=== PATIENT | female | born 1950 | race Caucasian/White ===

== ENCOUNTER → 2016-11-19 | Outpatient (CLI) | payer OTHER ==
--- NOTE | 2016-11-19 15:38 | US ---
Ultrasound Pelvis Complete (Transabdominal and Endovaginal) Including Duplex/Doppler Imaging History: Postmenopausal bleeding. N95.0 COMPARISON: MAY 2009. Technique: Transabdominal and endovaginal ultrasound images were obtained. Endovaginal images obtain ed for better evaluation of the uterine myometrium and adnexa. Duplex/Doppler imaging of adnexa. Findings: Uterus measures 10 x 4 x 5 cm. Endometrial thickness is 4 mm. In the anterior mid body of uterus there is a subserosal 1.7 x 1.6 x 1.6 cm hypoechoic leiomyoma unchanged since 2008. A few [place] cysts in the cervix. Right ovary measures 1.2 x 1.5 x 0.7 cm. Left ovary not visualized. No adnexal masses. No significa nt free fluid in the pelvis. Color Doppler flow to right ovary without torsion. Impression: 1. Anterior mid body subserosal uterine leiomyoma measuring 1.7 x 1.6 x 1.6 cm. 2. Normal endometrial thickness 4 mm. 3. Normal right ovary. 4. Left ovary not visualized. 5. No ascites.
== END ==
LOC: FIMAGING 13:25
PROVIDERS: ATTEND Obstetrics & Gynecology
DX: N95.0 Postmenopausal bleeding (principal); D25.2 Subserosal leiomyoma of uterus

== ENCOUNTER 2017-04-15 14:16 | Emergency (ER) | payer OTHER ==
[2017-04-15 14:26] VITALS: BP 165/87; PULSE 81; RESP 20; TEMP 97.3; O2SAT 99
--- NOTE | 2017-04-15 15:03 | EDPHY ---
H & P Time Seen by Provider: 04/15/17 14:50 HPI/ROS: CHIEF COMPLAINT: Left hip pain HISTORY OF PRESENT ILLNESS: Patient is a 67-year-old female with a remote history of breast cancer presents to the emergency department with left hip pain. Her pain started 3 weeks ago. It has been intermittent and waxing waning. She was doing fine yesterday. However when she woke this morning she had significant pain in her left hip. This was worse with movement. It hurts with particular movements "side to side." She is able to stand on it without significant worsening of her pain. She has no numbness or tingling. She does report that she had foot tingling "weeks and weeks ago" but this has resolved. She has no current numbness, tingling or weakness. No redness surrounding hip. No fevers or chills. No back pain. No recent falls or trauma. REVIEW OF SYSTEMS: My complete review of systems is negative except as mentioned in the HPI. Past Medical/Surgical History: Includes breast cancer, hypertension, glaucoma Past surgical history: Bilateral mastectomy, bilateral knee scope Social history: The patient does not smoke Smoking Status: Former smoker Physical Exam: 36.3, 165/87, 81, 20, 99% on room air GENERAL: Well-appearing, in no acute distress, alert. HEENT: Eyes normal to inspection, normal pharynx, no signs of dehydration. NECK: No thyromegaly, no lymphadenopathy, supple. RESPIRATORY: Clear to auscultation bilaterally, no rales, rhonchi or wheezing. CVS: Regular rate and rhythm, no rubs, murmurs, or gallops. ABDOMEN: Soft, nontender, nondistended, no organomegaly. No hernia. BACK: Normal to inspection, no CVA tenderness. Pelvis: Stable. No tenderness palpation. SKIN: Normal color, no rash, warm, dry. No pallor. EXTREMITIES: No pedal edema, no calf tenderness, no Homans sign or cords, no joint swelling. The left hip appears normal. No hip erythema or warmth. Patient has no discomfort with passive range of motion of her left hip. NEURO/PSYCH: Alert and oriented, normal mood and affect, normal motor sensory exam. Constitutional: Initial Vital Signs Temperature (C) 36.3 C 04/15/17 14:23 Heart Rate 81 04/15/17 14:23 Respiratory Rate 20 04/15/17 14:23 Blood Pressure 165/87 H 04/15/17 14:23 O2 Sat (%) 99 04/15/17 14:23 O2 Delivery Mode Room Air Allergies/Adverse Reactions: codeine [Codeine] Allergy (Verified 04/15/17 14:21) nitrofurantoin [From Macrobid] Allergy (Verified 04/15/17 14:21) nitrofurantoin macrocrystalline [From Macrobid] Allergy (Verified 04/15/17 14:21 ) Sulfa (Sulfonamide Antibiotics) Allergy (Verified 04/15/17 14:21) Home Medications: Medication Instructions Recorded Ibuprofen 600 mg PO Q6 #15 tablet 04/15/17 Minivelle 04/15/17 Progesterone 04/15/17 Ramipril 04/15/17 Travasol 8.5%-Electrolytes 04/15/17 oxyCODONE/APAP 5/325 [Percocet 1 - 2 tab PO Q4PRN PRN #11 tab 04/15/17 5/325 (*)] Medical Decision Making ED Course/Re-evaluation: In the emergency department discussed possible etiologies with the patient. I reviewed the patient's images from urgent care. Left hip: No acute disease noted. Please refer the dictated report by radiologist. I discussed the results with the patient. I answered all her questions. at this time I do not feel she needs laboratory studies. I do not feel she needs MRI upper lumbar spine or hip. I do not think this represents a surgical emergency. Patient will be given crutches, anti-inflammatory pain medication. She will follow up with Orthopedics. She is given warnings prior to leaving. She will return with worsening symptoms. Of note, the patient states she has an allergy to anti-inflammatory information. The ibuprofen script was torn up. Patient did not want crutches from the emergency department. She has crutches at home. Differential Diagnosis: My differential includes but is not limited to fracture, dislocation, sprain, strain, septic joint, disc herniation, cauda equina syndrome, epidural mass, epidural hematoma Departure - Departure Disposition: Home, Routine, Self-Care Clinical Impression: Left hip pain Condition: Good Instructions: Hip Pain (ED) Additional Instructions: Your x-ray did not show any fracture or dislocation. Use ice for the next 48 hours. Use your anti-inflammatory medicine. If your pain continues, use the pain medicine prescribed. You she weight bare as tolerated. Use your crutches as needed. Make appointment to follow up with Dr. Sanches. Referrals: Castro Sanches MD [Medical Doctor] - 3-4 days, if not improved Prescriptions: Ibuprofen 600 mg PO Q6 #15 tablet oxyCODONE/APAP 5/325 [Percocet 5/325 (*)] 1 - 2 tab PO Q4PRN PRN #11 tab PRN Reason: For Moderate To Severe Pain
== END 2017-04-15 15:32 | disposition home or self-care (01) ==
DX: M25.552 Pain in left hip (principal); I10 Essential (primary) hypertension; Z85.3 Personal history of malignant neoplasm of breast; Z87.891 Personal history of nicotine dependence

== ENCOUNTER → 2017-04-15 | Outpatient (CLI) | payer OTHER | LOC: BMCIMAGING 12:48 | PROVIDERS: ATTEND Family Medicine | DX: M25.552 Pain in left hip (principal); Z85.3 Personal history of malignant neoplasm of breast ==

== ENCOUNTER → 2018-07-23 | Outpatient (CLI) | payer OTHER | LOC: FIMAGING 08:59 | PROVIDERS: ATTEND Physician Assistant | DX: M54.2 Cervicalgia (principal); Z85.3 Personal history of malignant neoplasm of breast | CPT/HCPCS: 78306; A9503 ==

== ENCOUNTER → 2018-07-30 | Outpatient (CLI) | payer OTHER | LOC: FIMAGING 11:37 | PROVIDERS: ATTEND Physical Medicine & Rehabilitation Neuromuscular Medicine | DX: M47.812 Spondylosis without myelopathy or radiculopathy, cervical region (principal); M50.30 Other cervical disc degeneration, unspecified cervical region ==